=== PATIENT | male | born 1940 | race Caucasian/White ===

== ENCOUNTER 2017-02-18 07:45 | Day surgery (SDC) | payer OTHER, MEDICAID ==
[2017-02-18] MEDS ORDERED: fentaNYL CITRATE/PF 100 MCG/2 ML AMP ONE (08:03)
[2017-02-18] MEDS ORDERED: MIDAZOLAM HCL 5 MG/5 ML VIAL ONE (08:03)
[2017-02-18] MEDS ORDERED: SIMETHICONE 40 MG/0.6 ML ML ONE (08:04)
[2017-02-18 09:52] VITALS: BP_SYST 136
== END 2017-02-18 10:00 | disposition home or self-care (01) ==
LOC: SMU 07:45 → SDS 07:45
PROVIDERS: ATTEND Surgery
DX: Z12.11 Encounter for screening for malignant neoplasm of colon (principal); K64.8 Other hemorrhoids; D12.8 Benign neoplasm of rectum; F17.210 Nicotine dependence, cigarettes, uncomplicated
CPT/HCPCS: 45380; 88305; J2250; J3010; J7030